=== PATIENT | female | born 1950 | race Caucasian/White ===

== ENCOUNTER → 2020-03-04 | Outpatient (CLI) | payer OTHER ==
[~2020-03-04] MED LIST: ATOR20 PO; Aspir 8181 MG PO; BISA5EC PO; HYDROCHLOROTH12.5 MG PO; MAGCIT300 PO; METF500 PO; OXYB5 PO; ZESTRIL40 M1 PO
[2020-03-06 16:09] LABS: HPV 16 Negative (Negative); HPV 18 Negative (Negative); HPV OTHER HR TYPES Negative (Negative)
== END ==
LOC: LAB 14:36 → LAB SHORT 14:36
PROVIDERS: Student in an Organized Health Care Education/Training Program
DX: Z01.419 Encounter for gynecological examination (general) (routine) without abnormal findings (principal)
CPT/HCPCS: 87624; G0123

== ENCOUNTER 2020-07-12 07:02 | Emergency (ER) | payer OTHER ==
[~2020-07-12] VITALS: Ht 167.6 cm; Wt 99.8 kg
[~2020-07-12 07:02] MED LIST changes: -BISA5EC PO; -MAGCIT300 PO; -OXYB5 PO
[2020-07-12] MEDS ORDERED: OXYB5 PO (07:31)
[2020-07-12] MEDS ORDERED: MAGCIT300 PO (09:40)
[2020-07-12] MEDS ORDERED: BISA5EC PO (09:40)
== END 2020-07-12 09:53 | disposition home or self-care (01) ==
LOC: ER 07:02
DX: K59.00 Constipation, unspecified (principal); I10 Essential (primary) hypertension; E11.9 Type 2 diabetes mellitus without complications; Z79.82 Long term (current) use of aspirin; Z79.84 Long term (current) use of oral hypoglycemic drugs; Z79.899 Other long term (current) drug therapy
CPT/HCPCS: 74018; 99283-25

== ENCOUNTER 2021-10-07 08:43 | Day surgery (SDC) | payer OTHER ==
[~2021-10-07] VITALS: Ht 170.2 cm; Wt 86.9 kg
[~2021-10-07 08:43] MED LIST changes: +BISA5EC PO; +MAGCIT300 PO; +OXYB5 PO
[2021-10-07] MEDS ORDERED: OMEP20ER (09:17)
[2021-10-07] MEDS ORDERED: ATOR40TA (09:18)
== END 2021-10-07 10:46 | disposition home or self-care (01) ==
LOC: ORSCSDS 08:43
PROVIDERS: Student in an Organized Health Care Education/Training Program
PROC: 0DB58ZX Excision of Esophagus, Via Natural or Artificial Opening Endoscopic, Diagnostic (ICD-10-PCS; principal; 2021-10-07 10:15)
DX: K22.70 Barrett's esophagus without dysplasia (principal); K21.9 Gastro-esophageal reflux disease without esophagitis; K44.9 Diaphragmatic hernia without obstruction or gangrene; I10 Essential (primary) hypertension; E78.5 Hyperlipidemia, unspecified; E11.9 Type 2 diabetes mellitus without complications; Z79.82 Long term (current) use of aspirin; Z79.84 Long term (current) use of oral hypoglycemic drugs; Z79.899 Other long term (current) drug therapy
CPT/HCPCS: 82947; 88305; J2704; J7120

== ENCOUNTER → 2024-01-16 | Outpatient (CLI) | payer OTHER ==
[~2024-01-16] MED LIST changes: +ATOR40TA; +OMEP20ER
== END | disposition home or self-care (01) ==
LOC: LAB SHORT 08:59 → LAB 08:59
DX: R30.0 Dysuria (principal)
CPT/HCPCS: 87077; 87086; 87186

== ENCOUNTER 2024-12-17 07:55 | Day surgery (SDC) | payer OTHER ==
[~2024-12-17] VITALS: Ht 170.2 cm; Wt 72.4 kg
[2024-12-17] MEDS ORDERED: FOSAMAX70 MG (08:28)
[2024-12-17] MEDS ORDERED: ATENOLOL25 MG (08:28)
[2024-12-17] MEDS ORDERED: LISINOPRIL 40 MG TAB (08:28)
[2024-12-17] MEDS ORDERED: PEPCID40 MG (08:29)
[2024-12-17] MEDS ORDERED: OXYB5 (08:29)
[2024-12-17 10:24] VITALS: BP 122/65
== END 2024-12-17 10:10 | disposition home or self-care (01) ==
LOC: ORSCSDS 07:55
PROVIDERS: Internal Medicine Gastroenterology
PROC: 0DJ08ZZ Inspection of Upper Intestinal Tract, Via Natural or Artificial Opening Endoscopic (ICD-10-PCS; principal; 2024-12-17 09:15)
DX: K22.70 Barrett's esophagus without dysplasia (principal); K44.9 Diaphragmatic hernia without obstruction or gangrene; K21.9 Gastro-esophageal reflux disease without esophagitis; I10 Essential (primary) hypertension; E78.5 Hyperlipidemia, unspecified; E11.9 Type 2 diabetes mellitus without complications; Z85.41 Personal history of malignant neoplasm of cervix uteri; Z79.82 Long term (current) use of aspirin; Z79.84 Long term (current) use of oral hypoglycemic drugs; Z79.899 Other long term (current) drug therapy
CPT/HCPCS: 82947; J2704; J7120